=== PATIENT | female | born 1980 | race Caucasian/White ===

== ENCOUNTER 2017-06-20 18:51 | Outpatient (CLI) | payer OTHER ==
[~2017-06-20] VITALS: Ht 172.7 cm; Wt 83.6 kg
[~2017-06-20 18:51] MED LIST: BUPROPION XL150 MG PO; IBUPROFEN800 MG PO; MACROBID100 MG PO; METHADONE10 MG PO; Motrin PO; PREFERA-OB P1 TABLET PO; PRENATAL TABLE1 EAC3 PO; PROCTOFOAM-HC10 GM PR; Percocet 5/325,Endoc PO; REGLAN10 MG PO; ZOFRAN ODT4 MG PO; methadone
[2017-06-20 19:08] VITALS: BP 142/94
[2017-06-20] MEDS ORDERED: METHADONE10 MG/1 M1 PO (19:25)
[2017-06-20] MEDS ORDERED: METHADONE10 MG PO (19:25)
[2017-06-20 19:26] VITALS: BP 137/93
[2017-06-20] MEDS ORDERED: WELLBUTRIN SR100 MG PO (19:27)
[2017-06-20] MEDS ORDERED: LEXAPRO5 MG PO (19:27)
[2017-06-20 19:45] VITALS: BP 142/88
[2017-06-20 20:07] LABS: AMPHETAMINE NEGATIVE (500 ng/mL); BARBITURATES NEGATIVE (200 ng/mL); BENZODIAZEPINES NEGATIVE (150 ng/mL); BUPRENORPHINE NEGATIVE (10 ng/mL); COCAINE NEGATIVE (150 ng/mL); METHADONE PRESUMPTIVE POSITIVE (200 ng/mL); METHAMPHETAMINE NEGATIVE (500 ng/mL); OPIATES (MORPHINE) NEGATIVE (100 ng/mL); OXYCODONE NEGATIVE (100 ng/mL); PHENCYCLIDINE NEGATIVE (25 ng/mL); PROPOXYPHENE NEGATIVE (300 ng/mL); THC CANNABINOIDS NEGATIVE (50 ng/mL); TRICYCLIC ANTIDEPRESSANTS NEGATIVE (300 ng/mL)
[2017-06-20 20:39] VITALS: BP 145/87
[2017-06-20 20:49] VITALS: BP 142/89
== END 2017-06-20 21:25 | disposition home or self-care (01) ==
LOC: LDRP-OP 18:51 → 2WEST 18:52 → LDRP-OP 08-11 09:29
PROVIDERS: Advanced Practice Midwife
DX: O47.03 False labor before 37 completed weeks of gestation, third trimester (principal); Z3A.36 36 weeks gestation of pregnancy; O16.3 Unspecified maternal hypertension, third trimester; O99.333 Smoking (tobacco) complicating pregnancy, third trimester; F17.210 Nicotine dependence, cigarettes, uncomplicated; O99.323 Drug use complicating pregnancy, third trimester; F11.20 Opioid dependence, uncomplicated
CPT/HCPCS: 59025; G0378

== ENCOUNTER 2017-06-25 18:45 | Outpatient (CLI) | payer OTHER ==
[~2017-06-25 18:45] MED LIST changes: +LEXAPRO5 MG PO; +METHADONE10 MG/1 M1 PO; +WELLBUTRIN SR100 MG PO
== END 2017-06-25 20:20 | disposition home or self-care (01) ==
LOC: LDRP-OP 18:45 → 2WEST 18:47 → LDRP-OP 08-11 23:05
DX: O36.8130 Decreased fetal movements, third trimester, not applicable or unspecified (principal); Z3A.37 37 weeks gestation of pregnancy
CPT/HCPCS: 59025; G0378

== ENCOUNTER 2017-06-27 02:14 | Inpatient (IN) | payer OTHER ==
[2017-06-27] VITALS (13 sets, daily range): BP systolic 129–148; BP diastolic 78–101
[~2017-06-27] VITALS: Ht 172.7 cm; Wt 83.5 kg
[2017-06-27] MEDS ORDERED: MOTRIN800 MG PO (03:24)
[2017-06-27 05:08] LABS: BASOPHIL (%) 0.3 % (0-1); EOSINOPHIL (%) 0.2 % (0-5); HEMATOCRIT 31.5 % (36.0-46.0); IMMATURE GRANULOCYTE (%) 0.3 % (0.0-0.7); LYMPHOCYTE (%) 23.3 % (15-42); LYMPHOCYTE COUNT 2.4 K/uL (1.0-2.8); MCH 23.5 PG (29.0-34.0); MCHC 31.7 G/DL (30.0-36.0); MCV 74.1 FL (83-99); MONOCYTE (%) 6.8 % (3-12); MONOCYTE COUNT 0.7 K/uL (0-0.8); NEUTROPHIL (%) 69.1 % (45-76); PLATELET COUNT 201 K/uL (156-360); RBC DIS.WIDTH-SD 34.3 % (39-53); RED BLOOD COUNT 4.25 M/uL (3.80-5.20); WHITE BLOOD COUNT 10.1 K/uL (4.1-10.2)
[2017-06-27 05:44] LABS: BENZODIAZEPINES, URINE SCREEN Negative (200 ng/mL)
[2017-06-28 02:57] VITALS: BP 139/82
== END 2017-06-28 13:35 | disposition home or self-care (01) | DRG 775 ==
LOC: LDRP-OP 02:14 → 2WEST 02:15 → LDRP-OP 08-11 21:23
PROVIDERS: Nurse Practitioner
PROC: 10E0XZZ Delivery of Products of Conception, External Approach (ICD-10-PCS; principal; 2017-06-27)
DX: O62.3 Precipitate labor (principal); O69.81X0 Labor and delivery complicated by cord around neck, without compression, not applicable or unspecified; Z3A.37 37 weeks gestation of pregnancy; Z37.0 Single live birth; O99.334 Smoking (tobacco) complicating childbirth; F17.200 Nicotine dependence, unspecified, uncomplicated; O99.340 Other mental disorders complicating pregnancy, unspecified trimester; F32.9 Major depressive disorder, single episode, unspecified; O99.324 Drug use complicating childbirth; F11.20 Opioid dependence, uncomplicated
CPT/HCPCS: 59025; 80306 90; 85025; G0378; J2590